=== PATIENT | male | born 1940 | race African-American/Black ===

== ENCOUNTER 2017-02-04 17:40 | Inpatient (IN) | payer MEDICARE ==
[~2017-02-04] VITALS: Ht 182.9 cm; Wt 63.0 kg
[~2017-02-04 17:40] MED LIST: CLONIDINE0.1 MG PO; LISINOPRIL20 M1 PO; LISINOPRIL20 MG PO; TORADOL PO; ULTRAM50 M1 PO
--- NOTE | 2017-02-04 17:40 | NUR ---
PT TO ROOM FOR TREATMENT VIA WHEELCHAIR
--- NOTE | 2017-02-04 18:06 | NUR ---
PT TO ROOM FOR EXAM PER W/C
[2017-02-04 18:12] LABS: HEMATOCRIT 41.4 % (39.0-50.0); HEMOGLOBIN 14.4 g/dl (14.0-18.0); IMMATURE GRANULOCYTES 0.6 % (0.0-1.0); MEAN CELL VOLUME 98.8 fL CALC (80.0-100.0); MEAN CORPUSCULAR HGB 34.4 pG CALC (26.0-32.0); MEAN CORPUSCULAR HGB CONC 34.8 g/L CALC (32.0-36.0); NEUT# 10.26 thou/uL (1.82-7.42); RED BLOOD COUNT 4.19 mill/uL (4.70-6.10); RED CELL DISTRI WIDTH 13.7 % (11.5-15.5)
[2017-02-04 18:25] LABS: ALBUMIN 5.5 g/dL (3.2-5.0); CALCIUM 10.3 mg/dL (8.4-10.2); CREATININE 1.8 mg/dL (0.7-1.3)
--- NOTE | 2017-02-04 18:58 | NUR ---
PT RESTING QUIETLY ON STRETCHER, ANOTHER WARM BLANKET GIVEN, VITAL SIGNS STABLE
[2017-02-04 18:59] LABS: AMYLASE 144 u/l (30-110); LIPASE 142 u/l (23-300)
--- NOTE | 2017-02-04 19:35 | NUR ---
UNABLE TO OBTAIN MEDICATION LIST. PT STATES THE DOCTOR TOOK HIM OFF OF LISINOPRIL BUT HE CANT REMEMBER THE MEDICATION NAME THEY PUT HIM ON.
[2017-02-04 20:17] LABS: URINE BLOOD DIPSTICK MODERATE (NEGATIVE); URINE COLOR YELLOW; URINE GLUCOSE - DIPSTICK NEGATIVE (NEGATIVE); URINE KETONE 15 mg/dL (NEGATIVE); URINE LEUK ESTERASE NEGATIVE (NEGATIVE); URINE NITRITE - DIPSTICK NEGATIVE (Negative); URINE PROTEIN - DIPSTICK 100 mg/dL (NEG-TRACE); URINE SPECIFIC GRAVITY >=1.030; URINE UROBILINOGEN - DIPSTICK 0.2 E.U./dL (0.2)
[2017-02-04 20:18] LABS: URINE BILIRUBIN - DIPSTICK NEGATIVE (NEGATIVE); URINE CLARITY CLEAR
[2017-02-04 20:19] LABS: URINE WBC 0-2 WBC/hpf (0-5)
[2017-02-04 20:21] LABS: BARBITURATES NEGATIVE (NEGATIVE); COCAINE NEGATIVE (NEGATIVE); METHADONE NEGATIVE (NEGATIVE); OXCYCODONE NEGATIVE (NEGATIVE); TETRAHYDROCANNABIONOL POSITIVE (NEGATIVE); TRICYLIC ANTIDEPRESSANTS NEGATIVE (NEGATIVE)
--- NOTE | 2017-02-04 20:33 | NUR ---
PTS VITAL SIGNS REMAIN STABLE. DENIES SOB AT THIS TIME. REMAINS ALERT ORIENTED X3.
--- NOTE | 2017-02-04 21:33 | NUR ---
REPORT CALLED TO NHUNG FOR CONTINUATION OF CARE.
--- NOTE | 2017-02-04 21:40 | NUR ---
PT. ARRIVES BY STRETCHER FROM ER. AMBULATORY WITH CANE AND ONE PERSON ASSIST TO ELECTRONIC STANDING SCALE. PT. WITH MINIMAL ASSIST. PT. WITH MILD DYSPNEA ON EXERTION AT THIS TIME. SPO2 IS 97% ON RA AFTER AMBULATING TO ICU BED. ORIENTED TO ROOM AND CALL LIGHT SYSTEM. RESPS EVEN AND UNLABORED. PT. SINUS IN THE 80-90'S. LUNGS CTA. NO EDEMA NOTED. PULSES PRESENT THROUGHOUT. PT. DENIES COMPLAINTS OF PAIN OR NEED AT THIS TIME. ASSISTED TO GET COMFORTABLE. BELONGINGS ACCOUNTED FOR. CANE PRESENT AT BEDSIDE. PT. PROVIDED WITH URINAL AND INSTRUCTIONS TO CALL FOR ASSISTANCE IN GETTING UP. PT. UPDATED ON PLAN OF CARE AND UPCOMING MED ADMINISTRATIONS WELL AM TESTING AND RADIOLOGY NEEDS
--- NOTE | 2017-02-04 21:54 | NUR ---
PT TAKEN TO ICU PER MONITER AND FLUIDS HANGING
[2017-02-04 22:00] VITALS: BP 182/91
[2017-02-04 22:15] VITALS: BP 154/86
[2017-02-04 22:30] VITALS: BP 168/88
[2017-02-04 22:45] VITALS: BP 158/86
[2017-02-04 23:00] VITALS: BP 138/84
--- NOTE | 2017-02-04 23:10 | NUR ---
PT. MEDICATED PER PHYSICIAN ORDERS. INSTRUCTED ON NEED FOR MEDICATION AND SIDE EFFECTS. FARRAH DUBOIS.
[2017-02-05] VITALS (12 sets, daily range): BP systolic 117–169; BP diastolic 69–90
--- NOTE | 2017-02-05 00:06 | NUR ---
LAB AT BEDSIDE AT THIS TIME TO DRAW PATIENT. PT. AROUSABLE TO LIGHT VERBAL STIMULI. REMAINS STABLE. RESPS REMAIN EVEN AND UNLABORED. REMAINS AFEBRILE. VSS. DENIES COMPLAINT OR NEED.
--- NOTE | 2017-02-05 02:00 | NUR ---
PT. RESTING IN BED IN NO DISTRESS. APPROX 150 CC DARK YELLOW URINE OUT AT THIS TIME. REMAINS ORIENTED X 3. CALL LIGHT REMAINS WITHIN REACH. WILL CONTINUE TO MONITOR.
--- NOTE | 2017-02-05 03:15 | NUR ---
URINAL EMPTIED OF APPROX 150 CC CONCENTRATED URINE. PT. REMAINS STABLE AT THIS TIME. RESPS REMAIN EVEN AND UNLABORED. SKIN REMAINS WARM AND DRY. INTERMITTENT PVC'S NOTED. REMAINS SINUS TACHY AT THIS TIME.
--- NOTE | 2017-02-05 04:50 | NUR ---
URINAL EMPTIED OF APPROX 200 CC CONCENTRATED URINE AT THIS TIME. PT. DENIES COMPLAINTS OF PAIN OR SOB. PT. HR DOES ELEVATE WHEN EXERTED. PT. HR HAS INCREASED TO 150-160 WITH EXERTION. APPEARS TO REMAIN SINUS DURING THESE SHORT EPISODES. WILL CONTINUE TO MONITOR.
--- NOTE | 2017-02-05 05:54 | NUR ---
PT. REMAINS AROUSABLE TO LIGHT VERBAL STIMULI. LAB AT BEDSIDE TO DRAW PT. IV FLUIDS COMPLETE AT THIS TIME. IV LINE FLUSHED AND CHANGED TO SALINE LOCK.
[2017-02-05 06:20] LABS: HEMATOCRIT 36.8 % (39.0-50.0); HEMOGLOBIN 13.4 g/dl (14.0-18.0); MEAN CELL VOLUME 94.1 fL CALC (80.0-100.0); MEAN CORPUSCULAR HGB 34.3 pG CALC (26.0-32.0); MEAN CORPUSCULAR HGB CONC 36.4 g/L CALC (32.0-36.0); RED BLOOD COUNT 3.91 mill/uL (4.70-6.10); RED CELL DISTRI WIDTH 13.1 % (11.5-15.5)
[2017-02-05 06:29] LABS: ALBUMIN 4.4 g/dL (3.2-5.0); BUN 30 mg/dL (8-23); CALCIUM 9.7 mg/dL (8.4-10.2); CARBON DIOXIDE 29 mmol/l (22-30); CHLORIDE 98 mmol/l (95-108); CREATININE 1.2 mg/dL (0.7-1.3); GFR 59 ML/MIN (>=60 (CALC)); GFR FOR AFR.AMER. > 60 ML/MIN (>=60 (CALC)); GLUCOSE 154 mg/dL (82-115); MAGNESIUM 1.9 mg/dL (1.6-2.3); SODIUM 139 mmol/l (137-146)
--- NOTE | 2017-02-05 07:30 | NUR ---
PT ALERT AND ORIENTED, AM ASSESSMENT COMPLETED, SEE INTERVENTIONS, PT DENIES ANY COMPLAINTS THIS AM, DENIES PAIN, STATES SOME MILD DYSPNEA NBUT STATES ITS BEEN GOING ON FOR A FEW MONTHS, PT ALSO ADMITS TO LOSING SIGNIFICANT AMOUNT OF WEIGHT UNPLANNED IN LAST YEAR. SKIN WARM AND DRY, WITH NO BREAKDOWN NOTED, TELE READING SR-ST WITH PVC'S, TACHYCARDIC WITH EXERTION, PT DENIES PAIN, OR N/V, SAFETY MEASURES REINFORCED, CALL SPEARS WITHIN REACH. WILL CONTINUE TO MONITOR
--- NOTE | 2017-02-05 07:50 | NUR ---
SET UP ASSIST PROVIDED FOR AM MEAL, CALL SPEARS WITHIN REACH.
--- NOTE | 2017-02-05 08:47 | NUR ---
PT RESTING IN BED, OFFERS NO NEW COMPLAINTS, CALL SPEARS WITHIN REACH
--- NOTE | 2017-02-05 09:45 | NUR ---
PT OOB TO BSC, CONTINENT OF SMALL AMOUNT OF URINE, OFFERS NO NEW COMPLAINTS, CALL SPEARS WITHIN REACH
[2017-02-05 09:51] LABS: INTERNATIONAL NORMALIZED RATIO 1.1 RATIO (0.7-1.3)
--- NOTE | 2017-02-05 10:48 | NUR ---
PT RESTING IN BED, OFFERS NO NEW COMPLAINTS, CALL SPEARS WITHIN REACH
--- NOTE | 2017-02-05 10:55 | NUR ---
RECORD REQUESTED/REC'D FROM , NOTIFIED
--- NOTE | 2017-02-05 11:08 | NUR ---
PT AWARE OF PLANNED CT TEST AND NEED FOR IV ACCESS IN AC, WILL ATTEMPT, PT VERBALIZES UNDERSTANDING.
--- NOTE | 2017-02-05 12:01 | NUR ---
SET UP ASSIST PROVIDED FOR AFTERNOON MEAL, CALL SPEARS WITHIN REACH
--- NOTE | 2017-02-05 12:15 | NUR ---
LAB AT BEDSIDE FOR BLOOD DRAW ORDERED, WILL CONTINUE TO MONITOR,
--- NOTE | 2017-02-05 13:25 | NUR ---
20G IV STARTED IN RAC ON FIRST ATTEMPT FOR PLANNED/PENDING CT SCAN ORDERED, GOOD ASPIRATE NOTED, WILL CONTINUE TO MONITOR.
--- NOTE | 2017-02-05 13:39 | NUR ---
TO CT VIA WHEELCHAIR
--- NOTE | 2017-02-05 14:10 | NUR ---
PT BACK FROM CT, BACK TO BED ADN REPOSITIONED FOR COMFROT, ALL MONITORING EQUIPMENT REAPPLIED, CALL SPEARS WITHIN REACH AND PHARMACY AT BEDSIDE FOR MEDICATION REC. WILL CONTINUE TO MONITOR.
[2017-02-05] MEDS ORDERED: AMLODIPINE BESY10 MG PO (14:34)
[2017-02-05] MEDS ORDERED: ASPIRIN 8181 MG PO (14:35)
[2017-02-05] MEDS ORDERED: PLAVIX75 MG PO (14:35)
[2017-02-05] MEDS ORDERED: MEGESTROL AC20 MG PO (14:36)
--- NOTE | 2017-02-05 15:40 | NUR ---
PT RESTING IN BED, OFFERS NO NEW COMPLAINTS, CALL SPEARS WITHIN REACH
--- NOTE | 2017-02-05 16:59 | NUR ---
PT RESTING WITH EYES CLOSED, CALL SPEARS WITHIN REACH, NO S/S OF DISTRESS OR DISCOMFORT NOTED, WILL CONTINUE TO MONITOR.
--- NOTE | 2017-02-05 17:30 | NUR ---
REPOSITIONED FOR COMFORT SET UP ASSIST PROVIDED FOR PM MEAL, CALL SPEARS WITHIN REACH
--- NOTE | 2017-02-05 18:50 | NUR ---
REPORT FROM SAVITA SCHMITZ. ASSUMED PT. CARE.
--- NOTE | 2017-02-05 19:25 | NUR ---
PT. FOUND AWAKE, ALERT, ORIENTED X 3. SKIN WARM AND DRY. RAKAN. AFEBRILE AT 98.6. HR IRREGULAR BUT SINUS RHYTHM. BP STABLE AT 137/78. RESPS EVEN AND UNLABORED. DENIES COMPLAINTS OF PAIN OR NEED. PT. UPDATED ON PLAN OF CARE AND CURRENT RESULTS OF TODAYS TESTING AND LABS. WILL CONTINUE TO MONITOR. ENSURED THAT CALL LIGHT REMAINS IN PLACE AT THIS TIME.
--- NOTE | 2017-02-05 22:05 | NUR ---
PT. UP TO BEDSIDE COMMODE AT THIS TIME. ASSISTED BACK TO BED. APPROX 200 CC CLEAR YELLOW URINE OUT AT THIS TIME. DENIES COMPLAINT OR NEED.
[2017-02-06] VITALS: BP 119/81
--- NOTE | 2017-02-06 00:01 | NUR ---
PT. ASSISTED TO BEDSIDE COMMODE. AMBULATORY WITH STEADY GAIT. PLACED BACK ON MONITOR. DENIES COMPLAINTS OF PAIN OR NEED. CALL LIGHT REMAINS WITHIN REACH.
--- NOTE | 2017-02-06 01:41 | NUR ---
PT. RESTING IN BED WITH EYES CLOSED. RESPS EVEN AND UNLABORED. REMAINS STABLE. VSS. CALL LIGHT REMAINS WITHIN REACH.
--- NOTE | 2017-02-06 02:35 | NUR ---
PT. RESTING IN BED WITH EYES CLOSED. NO DISTRESS NOTED. VSS.
[2017-02-06 04:00] VITALS: BP 137/35
--- NOTE | 2017-02-06 04:30 | NUR ---
PT. CONTINUES TO REST IN BED EYES CLOSED AND NO DISTRESS. VS REMAIN STABLE. CALL LIGHT REMAINS WITHIN REACH.
--- NOTE | 2017-02-06 05:18 | NUR ---
PT. AROUSABLE TO LIGHT VERBAL STIMULI. REMAINS ORIENTED X 3. SKIN WARM AND DRY. REMAINS AFEBRILE. DENIES COMPLAINTS OF PAIN OR NEED. LAB AT BEDSIDE TO DRAW PT. VSS. CALL LIGHT REMAINS WITHIN REACH.
[2017-02-06 05:44] LABS: ANION GAP 14 (6-22 (CALC)); BUN 25 mg/dL (8-23); BUN/CREATININE RATIO 24 (12-20 (CALC)); CALCIUM 9.9 mg/dL (8.4-10.2); CARBON DIOXIDE 30 mmol/l (22-30); CHLORIDE 96 mmol/l (95-108); GFR > 60 ML/MIN (>=60 (CALC)); GFR FOR AFR.AMER. > 60 ML/MIN (>=60 (CALC)); GLUCOSE 106 mg/dL (82-115); POTASSIUM 3.4 mmol/l (3.5-5.1); SODIUM 136 mmol/l (137-146)
[2017-02-06 05:45] LABS: HEMATOCRIT 41.2 % (39.0-50.0); HEMOGLOBIN 14.8 g/dl (14.0-18.0); MEAN CELL VOLUME 95.6 fL CALC (80.0-100.0); MEAN CORPUSCULAR HGB 34.3 pG CALC (26.0-32.0); MEAN CORPUSCULAR HGB CONC 35.9 g/L CALC (32.0-36.0); RED BLOOD COUNT 4.31 mill/uL (4.70-6.10); RED CELL DISTRI WIDTH 12.9 % (11.5-15.5)
--- NOTE | 2017-02-06 07:30 | NUR ---
PT ALERT AND ORIENTED, VERBALIZES DESIRE TO GO HOME TODAY, IV SITES INTACT, AM ASSESSMENT COMPLETED, SEE INTERVENTIONS, SKIN WARM DRY AND INTACT WITH NO BREAKDOWN NOTED, ABD SOFT AND BS ACTIVE, DENIES SHORTNESS OF BREATH OR DISTRESS THIS AM, CALL SPEARS WITHIN REACH, WILL CONTINUE TO MONITOR.
--- NOTE | 2017-02-06 07:50 | NUR ---
SET UP ASSIST PROVIDED FOR AM MEAL, CALL SPEARS WITHIN REACH
--- NOTE | 2017-02-06 08:27 | NUR ---
TOLERATED AM MEAL WELL, AWAITING ON AM ROUNDS, WILL CONTINUE TO MONITOR.
[2017-02-06 09:37] VITALS: BP 137/35
[2017-02-06] MEDS ORDERED: ATORVASTATIN CA40 MG PO (09:39)
[2017-02-06] MEDS ORDERED: LOPRESSOR25 M1 PO (09:39)
[2017-02-06] MEDS ORDERED: LOSARTAN POT25 MG PO (09:39)
--- NOTE | 2017-02-06 10:48 | NUR ---
IV SITE'S REMOVED AND DISCHARGE INSTRUCTIONS GIVEN AND VERBALIZED UNDERSTANDING. KEARA HAS BEEN CALLED TO GAS TESTER PT.
--- NOTE | 2017-02-06 10:54 | NUR ---
Discharge instructions given. Patient verbalizes understanding of same. Discharged in stable condition via Wheelchair to Home, All belongings sent with pt.
== END 2017-02-06 10:55 | disposition home or self-care (01) | DRG 683 ==
LOC: ED 17:40 → ED-I 18:03 → ED 18:03 → ED-I 19:30 → ED 20:49 → ICU 20:50
PROVIDERS: Emergency Medicine; ADMIT Internal Medicine; ATTEND Internal Medicine
DX: N17.9 Acute kidney failure, unspecified (principal); E87.2 Acidosis; E86.0 Dehydration; F17.210 Nicotine dependence, cigarettes, uncomplicated; I10 Essential (primary) hypertension; I73.9 Peripheral vascular disease, unspecified; Z95.820 Peripheral vascular angioplasty status with implants and grafts; F10.20 Alcohol dependence, uncomplicated; F12.90 Cannabis use, unspecified, uncomplicated
CPT/HCPCS: J1650; Q9967

== ENCOUNTER 2017-12-23 13:01 | Inpatient (IN) | payer MEDICARE ==
[~2017-12-23] VITALS: Ht 182.9 cm; Wt 59.5 kg
[2017-12-23] VITALS (9 sets, daily range): BP systolic 112–136; BP diastolic 62–74
[~2017-12-23 13:01] MED LIST changes: +AMLODIPINE BESY10 MG PO; +ASPIRIN 8181 MG PO; +ATORVASTATIN CA40 MG PO; +LOPRESSOR25 M1 PO; +LOSARTAN POT25 MG PO; +MEGESTROL AC20 MG PO; +PLAVIX75 MG PO
--- NOTE | 2017-12-23 13:08 | NUR ---
PT TO ROOM VIA EMS
[2017-12-23 13:29] LABS: HEMATOCRIT 44.9 % (39.0-50.0); HEMOGLOBIN 14.9 g/dl (14.0-18.0); IMMATURE GRANULOCYTES 0.7 % (0.0-5.0); MEAN CELL VOLUME 99.1 fL CALC (80.0-100.0); MEAN CORPUSCULAR HGB 32.9 pG CALC (26.0-32.0); MEAN CORPUSCULAR HGB CONC 33.2 g/L CALC (32.0-36.0); NEUT# 12.74 thou/uL (1.82-7.42); RED BLOOD COUNT 4.53 mill/uL (4.70-6.10); RED CELL DISTRI WIDTH 15.7 % (11.5-15.5)
--- NOTE | 2017-12-23 13:30 | NUR ---
SPOKE WITH ALYSSA AT POISON CONTROL AND INFORMED PT HAD TAKEN UNKNOWN QUANTITIES OF MEGACE 20MG AND POSSIBLY METOPROLOL 25MG. POISON CONTROL STATES MEGACE "SELDOM CAUSES TOXICITY". NO SPECIAL TESTS BESIDES NORMAL OVERDOSE WORKUP. PRIMARY CARE NURSE SAVITA LAWRENCE AND DR ESCALONA INFORMED.
[2017-12-23 13:48] LABS: ALBUMIN 4.5 g/dL (3.2-5.0); ALKALINE PHOSPHATASE 98 u/l (38-126); BILIRUBIN, TOTAL 0.9 mg/dL (0.0-1.4); BUN 59 mg/dL (8-23); CARBON DIOXIDE 22 mmol/l (22-30); CHLORIDE 104 mmol/l (95-108); TOTAL PROTEIN 7.7 g/dL (6.3-8.2)
[2017-12-23 13:51] LABS: ANION GAP 21 (6-22 (CALC)); BUN/CREATININE RATIO 16 (12-20 (CALC)); ETHYL ALCOHOL 0 mg/dl (0-30); GFR 16 ML/MIN (>=60 (CALC)); GFR FOR AFR.AMER. 19 ML/MIN (>=60 (CALC))
[2017-12-23 13:52] LABS: CREATININE 3.8 mg/dL (0.7-1.3); POTASSIUM 4.2 mmol/l (3.5-5.1); SGOT/AST 101 u/l (19-48); SODIUM 143 mmol/l (137-146)
--- NOTE | 2017-12-23 14:01 | NUR ---
patient resting medicated per md order patient awaiting lab and radiology results. patient voices no concerns at this time. md updated on patient status
[2017-12-23 14:25] LABS: MYOGLOBIN 2015 ng/mL (0 - 121)
--- NOTE | 2017-12-23 15:00 | NUR ---
PT RESTING. IV BOLUS INFUSING, SITE HEALTHY
[2017-12-23 15:09] LABS: URINE BLOOD DIPSTICK LARGE (NEGATIVE); URINE COLOR YELLOW; URINE GLUCOSE - DIPSTICK NEGATIVE (NEGATIVE); URINE KETONE 15 mg/dL (NEGATIVE); URINE LEUK ESTERASE TRACE (NEGATIVE); URINE NITRITE - DIPSTICK NEGATIVE (Negative); URINE PROTEIN - DIPSTICK 100 mg/dL (NEG-TRACE); URINE SPECIFIC GRAVITY >=1.030; URINE UROBILINOGEN - DIPSTICK 0.2 E.U./dL (0.2)
[2017-12-23 15:35] LABS: URINE BILIRUBIN - DIPSTICK SMALL (NEGATIVE); URINE CLARITY CLEAR
[2017-12-23 15:45] LABS: URINE RBC TNTC RBC/hpf (0-5)
[2017-12-23 15:46] LABS: URINE BACTERIA FEW hpf; URINE SQUAMOUS EPITHELIAL CELL FEW EPI/hpf (0-FEW); URINE TRICHOMONAS MODERATE hpf
[2017-12-23 15:52] LABS: BARBITURATES NEGATIVE (NEGATIVE); COCAINE NEGATIVE (NEGATIVE); METHADONE NEGATIVE (NEGATIVE); OXCYCODONE NEGATIVE (NEGATIVE); TETRAHYDROCANNABIONOL POSITIVE (NEGATIVE); TRICYLIC ANTIDEPRESSANTS NEGATIVE (NEGATIVE)
--- NOTE | 2017-12-23 16:24 | NUR ---
UNABLE TO VERIFY MEDICATIONS LIST OR LAST DATE AND TIME WHEN TAKEN
--- NOTE | 2017-12-23 16:43 | NUR ---
plan of care for admission to ICU discussed with pt and understanding expressed by pt.
--- NOTE | 2017-12-23 16:57 | NUR ---
report given to sharirn
--- NOTE | 2017-12-23 17:10 | NUR ---
GRANDDAUGHTER @BEDSIDE. STATES THIS IS WHAT HAPPENED LAST TIME HE WAS IN THE HOSPTIAL. PT PICKING OFF TELE LEADS, STATING HE WANTS TO EAT THE CHEESE. AWARE.
--- NOTE | 2017-12-23 17:25 | NUR ---
PT ARRIVED TO ICU 6 FROM ER BY STRETCHER WITH TELE & IVF RUNNING. ASHLEY BICOLIVIA DC'D. DR TRAMMELL @BEDSIDE WITH PT. PT ABLE TO TRANSFER FROM STRETCHER TO STRETCHER.
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
--- NOTE | 2017-12-23 18:36 | NUR ---
PT SITTING UP ON SIDE OF BED EATING DINNER.
--- NOTE | 2017-12-23 19:30 | NUR ---
awake. confused. oriented to name only. bus driver/monitor shows sinus rhythm. #20 rfa saline lock. #20 lfa. cardizem gtt infusing @ 5mghr. ns began @ 100cchr as ordered. po fluids taken poor. has not voided. fall precautions cont. bed alarm activated.
--- NOTE | 2017-12-23 20:45 | NUR ---
alexi from poison control called this senior grant writer. alexi updated this senior grant writer. recent v/s & lab results given.
--- NOTE | 2017-12-23 22:00 | NUR ---
eyes closed. no distress. campus monitor shows sinus rhythm.
[2017-12-24] VITALS (21 sets, daily range): BP systolic 117–150; BP diastolic 67–85
--- NOTE | 2017-12-24 00:03 | NUR ---
eyes closed. no distress. youth nutritional monitor shows sinus rhythm.
--- NOTE | 2017-12-24 02:00 | NUR ---
awake. voided per urinal. denies c/o.
--- NOTE | 2017-12-24 04:00 | NUR ---
eyes closed. no apparent distress. residential monitor shows sinus rhythm hr 61. cardizem gtt d/c'd.
--- NOTE | 2017-12-24 05:00 | NUR ---
lab here. blood drawn.
[2017-12-24 05:24] LABS: IMMATURE GRANULOCYTES 0.6 % (0.0-5.0); MEAN CELL VOLUME 99.5 fL CALC (80.0-100.0); MEAN CORPUSCULAR HGB 33.4 pG CALC (26.0-32.0); MEAN CORPUSCULAR HGB CONC 33.6 g/L CALC (32.0-36.0); NEUT# 8.07 thou/uL (1.82-7.42); RED BLOOD COUNT 3.86 mill/uL (4.70-6.10); RED CELL DISTRI WIDTH 15.5 % (11.5-15.5)
[2017-12-24 05:27] LABS: HEMOGLOBIN 12.9 g/dl (14.0-18.0)
[2017-12-24 05:28] LABS: HEMATOCRIT 38.4 % (39.0-50.0)
[2017-12-24 05:40] LABS: BILIRUBIN, TOTAL 0.8 mg/dL (0.0-1.4); POTASSIUM 4.2 mmol/l (3.5-5.1)
[2017-12-24 05:43] LABS: AMYLASE 89 u/l (30-110); CPK 644 u/l (52-200); LIPASE 339 u/l (23-300)
[2017-12-24 06:01] LABS: ALBUMIN 3.5 g/dL (3.2-5.0); CREATININE 2.4 mg/dL (0.7-1.3); MAGNESIUM 2.4 mg/dL (1.6-2.3); TOTAL PROTEIN 6.1 g/dL (6.3-8.2)
--- NOTE | 2017-12-24 07:00 | NUR ---
REPORT RECVD FROM KEL OCONNOR. PT APPEARS TO BE SLEEPING IN BED.
--- NOTE | 2017-12-24 08:23 | NUR ---
PT SITTING UP IN BED. ASKED FOR COFFEE. PT DENIES ANY PAIN. PT A&Ox3. NSR ON TELE. PULSES STRONG. NO EDEMA. ABD SOFT/NONTENDER, ACTIVE BS. PT DENINES N/V/D. WINDOW CURTAINS OPENED. PT REORIENTED TO CALLBELL.
--- NOTE | 2017-12-24 11:04 | NUR ---
DR TRAMMELL @BEDSIDE ASSESSING PT. SON-IN-LAW @BEDSIDE, STATES PTS DAUGHTER MAKES ALL DECISIONS FOR PT. PT LIVES ALONE.
--- NOTE | 2017-12-24 11:50 | NUR ---
#16 CATH BIGGS INSERTED. LEG STRAP ON. DRAINING CLEAR YELLOW URINE. 100CC OUTPUT IMMEDIATELY. PT TOLERATED PROCEDURE WELL.
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
--- NOTE | 2017-12-24 14:24 | NUR ---
PT TO U/S BY WC WITH AUXILLARY
--- NOTE | 2017-12-24 15:43 | NUR ---
PT LAYING IN BED, WATCHING TV. NO NEEDS/CONCERNS AT THIS TIME. CALLBELL W/IN REACH. WILL CONTINUE TO MONITOR.
--- NOTE | 2017-12-24 16:45 | NUR ---
PT SLEEPING IN BED. NO S/S OF DISTRESS. WILL CONTINUE TO MONITOR.
--- NOTE | 2017-12-24 17:29 | NUR ---
PT SITTING UP IN BED, EATING DINNER.
--- NOTE | 2017-12-24 17:36 | NUR ---
CALLED TO ROOM. PT UPSET BC HE DIDNT GET HIS LETTUCE, TOMATO, & RIVERA WITH HIS DINNER. PT GIVEN A 240CUP OF CRANBERRY JUICE WITH DINNER. PT AWARE THAT HE CAN NOT HAVE ANY MORE FLUIDS TONIGHT. PT ACKNOWLEDGED FLUID RESTRICTIONS. CAFE BROUGHT UP MISSING ITEMS QUICKLY.
--- NOTE | 2017-12-24 18:24 | NUR ---
POISON CONTROL CALLED TO CHECK IN ON PT. WILL CLOSED CASE.
--- NOTE | 2017-12-24 19:30 | NUR ---
awake. denies c/o. more awake tonite. admits to "feel better." daughter @ bedside. spoke @ length reguarding discharge planning & living with daughter. agreeable to live with daughter. onyx chip terrazzo worker shows sinus rhythm. #20 lfa saline lock. #20 rfa banana bag infusing @ 100cchr. po fluids taken well. luna cath in place. urine clear yellow. fall precautions & bed alarm cont.
--- NOTE | 2017-12-24 22:00 | NUR ---
awake. watching football. denies c/o. loss prevention consultant shows sinus rhythm.
[2017-12-25] VITALS (11 sets, daily range): BP systolic 120–158; BP diastolic 63–85
--- NOTE | 2017-12-25 00:01 | NUR ---
eyes closed. no apparent distress. prosthetics assistant shows sinus carol ann.
--- NOTE | 2017-12-25 02:00 | NUR ---
resting quietly. resps even & unlabored. no apparent distress. athletic monitor shows sinus carol ann.
--- NOTE | 2017-12-25 04:40 | NUR ---
lab here. blood drawn.
[2017-12-25 05:10] LABS: IMMATURE GRANULOCYTES 0.2 % (0.0-5.0); MEAN CELL VOLUME 99.7 fL CALC (80.0-100.0); MEAN CORPUSCULAR HGB 33.8 pG CALC (26.0-32.0); NEUT# 5.01 thou/uL (1.82-7.42); RED BLOOD COUNT 3.25 mill/uL (4.70-6.10); RED CELL DISTRI WIDTH 15.2 % (11.5-15.5)
[2017-12-25 05:20] LABS: HEMATOCRIT 32.4 % (39.0-50.0)
[2017-12-25 05:30] LABS: ALBUMIN 2.8 g/dL (3.2-5.0); BILIRUBIN, TOTAL 0.5 mg/dL (0.0-1.4); CREATININE 1.6 mg/dL (0.7-1.3)
[2017-12-25 05:36] LABS: MAGNESIUM 1.7 mg/dL (1.6-2.3)
--- NOTE | 2017-12-25 05:47 | NUR ---
awake. denies c/o. air sampling and monitoring shows sinus carol ann.
--- NOTE | 2017-12-25 06:00 | NUR ---
stood to weigh. yannick well.
--- NOTE | 2017-12-25 07:15 | NUR ---
pt awake in bed; no distress noted; assessment completed at this time; pt alert to person, place, month; confused to year; offers no complaints; denies pain; no n/v noted; resp even and unlabored; lungs clear/ diminished bases; skin color wnl; ra; hr reg; wk pedal pulses; no edema noted; bilat knee high son hose intact; sb on monitor; abd soft with bs present; no bm noted per proposal lead writer; luna to gravity draining clear yellow urine; cath strap intact; #20 ems site flushed to lfa; leaking at insertion site noted; site dc'd with catheter tip intact; #20 to rfa patent with ivf infusing without complication; no redness or edema noted at site; plan of care/ am meds explained; pt encouraged to use call light; will continue to monitor closely
--- NOTE | 2017-12-25 08:07 | NUR ---
awake in bed; offers no complaints; denies pain; sb on monitor with occ pvc; iv patent; no redness or edema noted at site; call light within reach; will continue to monitor
--- NOTE | 2017-12-25 09:05 | NUR ---
SB 50s on monitor; informed TRIMMING ASSEMBLER Dontae guzman to be held; will reassess
--- NOTE | 2017-12-25 10:19 | NUR ---
resting in bed with eyes closed; no distress noted; resp even and unlabored; iv patent; no redness or edema noted at site; sr on monitor; call light within reach; will continue to monitor
--- NOTE | 2017-12-25 12:08 | NUR ---
awake in bed eating lunch; no distress noted; pt offers no complaints; iv intact and patent; no redness edema noted at site; sr on monitor; luna to gravity; call light within reach; will continue to monitor
--- NOTE | 2017-12-25 13:45 | NUR ---
pt out of bed per self for bowel movement; pt noted to inadventently removed iv; catheter tip noted intact; pt instructed to call for assistance; linen changed at this time; sb on monitor; #20 started in lfa x1 attempt per sports book writer; pt denies additional needs; call light within reach; will continue to monitor
--- NOTE | 2017-12-25 14:18 | NUR ---
sb on mointor; offers no complaints; no distress noted; will continue to monitor
--- NOTE | 2017-12-25 16:00 | NUR ---
awake in bed; offers no complaints; no distress noted; sb on monitor; iv patent; no redness or edema noted at site; call light within reach; will continue to monitor
--- NOTE | 2017-12-25 17:59 | NUR ---
awake in bed; offers no complaints; no distress noted; resp even and unlabored; sb/ pvc on monitor; iv patent; no redness or edema noted at site; luna to gravity; bed in lowest position; side rails elevated; call light within reach
--- NOTE | 2017-12-25 19:20 | NUR ---
awake. oriented to name & place. director heart shows sinus carol ann. #20 lfa banana bag infusing @ 100cchr. po fluids taken well. luna cath in place. urine clear yellow. bed alarm & fall precautions cont.
--- NOTE | 2017-12-25 22:00 | NUR ---
watching tv. denies c/o. monitoring analyst shows sinus carol ann.
[2017-12-26] VITALS (9 sets, daily range): BP systolic 141–177; BP diastolic 78–98
--- NOTE | 2017-12-26 00:01 | NUR ---
awake. watching tv. no c/o voiced. instrument assembly supervisor shows sinus carol ann.
--- NOTE | 2017-12-26 02:00 | NUR ---
resting quietly. no apparent distress. gambling monitor shows sinus carol ann.
--- NOTE | 2017-12-26 04:02 | NUR ---
eyes closed. no distress. broom maker shows sinus carol ann.
--- NOTE | 2017-12-26 05:00 | NUR ---
lab here. blood drawn.
[2017-12-26 05:20] LABS: HEMATOCRIT 33.9 % (39.0-50.0); HEMOGLOBIN 11.4 g/dl (14.0-18.0); IMMATURE GRANULOCYTES 0.4 % (0.0-5.0); MEAN CELL VOLUME 100.3 fL CALC (80.0-100.0); MEAN CORPUSCULAR HGB 33.7 pG CALC (26.0-32.0); MEAN CORPUSCULAR HGB CONC 33.6 g/L CALC (32.0-36.0); NEUT# 4.04 thou/uL (1.82-7.42); RED BLOOD COUNT 3.38 mill/uL (4.70-6.10)
[2017-12-26 05:49] LABS: ALBUMIN 2.8 g/dL (3.2-5.0); BILIRUBIN, TOTAL 0.7 mg/dL (0.0-1.4); CREATININE 1.4 mg/dL (0.7-1.3); MAGNESIUM 1.4 mg/dL (1.6-2.3); POTASSIUM 4.2 mmol/l (3.5-5.1); TOTAL PROTEIN 5.1 g/dL (6.3-8.2)
--- NOTE | 2017-12-26 07:05 | NUR ---
pt resting in bed with eyes closed; easily aroused to verbal stimuli; no distress noted; pt offers no complaints; assessment completed at this time; pt alert and oriented; no confusion noted at present; denies pain; no n/v noted; resp even and unlabored; lungs clear; skin color wnl; ra; hr reg; wk pedal pulses; no edema noted; sb/occ pvc on monitor; abd soft with bs present; no bm noted per insurance underwriter; luna to gravity draining clear yellow urine; cath strap intact; #20 flushed and patent to lfa; no redness or edema noted at site; plan of care/ am meds explained; call light within reach; will continue to monitor
--- NOTE | 2017-12-26 08:06 | NUR ---
awake in bed; offers no complaints; no distress noted; sb on monitor; iv intact; call light within reach; will continue to monitor
--- NOTE | 2017-12-26 09:45 | NUR ---
senior grant writer called and spoke with NO Michelle; PATIENT FLOW COORDINATOR informed per this senior grant writer of bradycardia during the night; informed of elevated BP; lopressor to be held until hr increases; senior grant writer reviewed home lopressor dose(25mg) with current dose ordered (50mg); PATIENT FLOW COORDINATOR also informed of mag level 1.4 with no orders to treat; orders to be placed
--- NOTE | 2017-12-26 10:15 | NUR ---
resting in bed with eyes closed; sb on monitor; bp slightly elevated; pt easily aroused; offers no complaints; luna removed and pericare provided; urinal provided; iv patent; fluids/mag infusing without complication; call light within reach; will continue to monitor
--- NOTE | 2017-12-26 12:09 | NUR ---
awake in bed; offers no complaints; iv patent; no redness or edema noted at site; sr on monitor; pt denies needs; pt has not urinated since luna removal; bp 175/88; TRANSLATOR/INTERPRETER Michelle notified; call light within reach; will continue to monitor
--- NOTE | 2017-12-26 14:15 | NUR ---
awake in bed; family present at bedside; no distress noted; pt offers no complaints; iv patent; no redness or edema noted at site; sr on monitor; call light within reach; will continue to monitor
--- NOTE | 2017-12-26 15:05 | NUR ---
Dr Jenkins present at bedside to assess pt and discuss plan of care;
[2017-12-26] MEDS ORDERED: LOPRESSOR25 M1 PO (15:11)
[2017-12-26] MEDS ORDERED: FOLIC ACID1 MG PO (15:11)
[2017-12-26] MEDS ORDERED: AMLODIPINE BESYL5 MG PO (15:11)
[2017-12-26] MEDS ORDERED: VITAMIN B-1100 M1 PO (15:11)
--- NOTE | 2017-12-26 15:50 | NUR ---
daughter Bobby on phone; updated on plan for discharge; daughter agree pt will be residing with her; awaiting leaf size picker
--- NOTE | 2017-12-26 16:13 | NUR ---
awake in bed; no distress noted; pt offers no complaints; sb on monitor; iv dc'd with catheter tip intact; discharge instructions to be reviewed when daughter present at bedside
--- NOTE | 2017-12-26 17:51 | NUR ---
Discharge instructions given. Patient verbalizes understanding of same. Discharged in stable condition via Wheelchair to Home with family. All belongings sent with pt.
--- NOTE | 2017-12-26 18:03 | NUR ---
discharged with daughter in stable condition; Dr Huntley's office number provided for follow up appt;
== END 2017-12-26 18:00 | disposition home or self-care (01) | DRG 897 ==
LOC: ED 13:01 → ED-I 16:15 → ED 16:20 → ICU 16:21
PROVIDERS: Family Medicine; ADMIT Internal Medicine Nephrology; ATTEND Internal Medicine Nephrology
PROC: 0T9B70Z Drainage of Bladder with Drainage Device, Via Natural or Artificial Opening (ICD-10-PCS; principal; 2017-12-24)
DX: F10.231 Alcohol dependence with withdrawal delirium (principal); I48.92 Unspecified atrial flutter; M62.82 Rhabdomyolysis; N17.9 Acute kidney failure, unspecified; F10.27 Alcohol dependence with alcohol-induced persisting dementia; G31.2 Degeneration of nervous system due to alcohol; F02.80 Dementia in other diseases classified elsewhere, unspecified severity, without behavioral disturbance, psychotic disturbance, mood disturbance, and anxiety; I10 Essential (primary) hypertension; F17.200 Nicotine dependence, unspecified, uncomplicated; E86.0 Dehydration; I73.9 Peripheral vascular disease, unspecified; M19.90 Unspecified osteoarthritis, unspecified site; A59.00 Urogenital trichomoniasis, unspecified; R74.0 Nonspecific elevation of levels of transaminase and lactic acid dehydrogenase [LDH]; E83.42 Hypomagnesemia; I48.91 Unspecified atrial fibrillation; Z95.820 Peripheral vascular angioplasty status with implants and grafts

== ENCOUNTER 2018-09-01 08:22 | Emergency (ER) | payer MEDICARE ==
[~2018-09-01] VITALS: Ht 182.9 cm; Wt 65.0 kg
[~2018-09-01 08:22] MED LIST changes: +AMLODIPINE BESYL5 MG PO; +FOLIC ACID1 MG PO; +VITAMIN B-1100 M1 PO
[2018-09-01] MEDS ORDERED: GOLYTELY4000 ML PO (08:54)
[2018-09-01 08:57] VITALS: BP 148/84
== END 2018-09-01 09:04 | disposition home or self-care (01) ==
LOC: ED 08:22
DX: K59.00 Constipation, unspecified (principal); I10 Essential (primary) hypertension; F03.90 Unspecified dementia, unspecified severity, without behavioral disturbance, psychotic disturbance, mood disturbance, and anxiety; F10.20 Alcohol dependence, uncomplicated; F17.200 Nicotine dependence, unspecified, uncomplicated